=== PATIENT | female | born 1995 | race Two or more races ===

== ENCOUNTER 2018-11-11 09:59 | Emergency (ER) | payer OTHER ==
[~2018-11-11] VITALS: Ht 172.7 cm; Wt 54.0 kg
--- NOTE | 2018-11-11 10:05 | NUR ---
CAME IN FOR RASH AND BOIL TO [facility] FOR 2 DAYS. TO ER BED 16, CHANGED TO GOWN, PROVIDED W WARM BLANKET. AWAITING MD LONGO.
--- NOTE | 2018-11-11 10:09 | NUR ---
CHAPERONED DR GONZÁLES TO [facility] PT.
[2018-11-11] MEDS ORDERED: CEFAZOLIN 1 GM VIAL IM ONE (10:30)
--- NOTE | 2018-11-11 10:37 | NUR ---
Patient discharged to home in stable condition. Written and verbal after care instructions given. Patient verbalizes understanding of instruction.
[2018-11-11 10:39] VITALS: BP 110/69
== END 2018-11-11 10:39 | disposition home or self-care (01) ==
LOC: ER 10:01
DX: L73.8 Other specified follicular disorders (principal)
CPT/HCPCS: 96372; 99283; J0690